=== PATIENT | female | born 1975 | race Caucasian/White ===

== ENCOUNTER 2021-12-02 17:15 | Inpatient (IN) | payer MEDICARE ==
[~2021-12-02] VITALS: Ht 175.3 cm; Wt 83.9 kg
[2021-12-02] MEDS ORDERED: ONDANSETRON HCL INJ 2MG/ML 2ML 2 MG/ML VIAL IV STA (17:34)
[2021-12-02] MEDS ORDERED: Morphine 4mg INJECTION 4 MG/ML INJ IV STA (17:34)
[2021-12-02 17:55] LABS: BASOPHILS # (AUTO) 0.1 (0.0-0.1); BASOPHILS % 0.4 % (0.0-1.0); EOSINOPHILS # (AUTO) 0.2 (0.0-0.4); EOSINOPHILS % 1.3 % (0.0-6.0); HEMATOCRIT 37.6 % (34.2-44.1); LYMPHOCYTES % 12.6 % (18.0-39.1); MEAN CORPUSCULAR HEMOGLOBIN 31.4 pg (28-32); MEAN CORPUSCULAR HGB CONC 34.6 g/dL (31-35); MEAN CORPUSCULAR VOLUME 90.8 fL (81-99); MONOCYTES # (AUTO) 0.6 (0.2-0.8); MONOCYTES % 3.9 % (4.4-11.3); NEUTROPHILS # (AUTO) 12.8 (2.1-6.9); NEUTROPHILS % 80.9 % (38.7-80.0); PLATELET COUNT 300 x10e3/uL (140-360); RED BLOOD COUNT 4.14 x10e6/uL (3.6-5.1); RED CELL DISTRIBUTION WIDTH 13.3 % (11.7-14.4)
[2021-12-02 18:15] LABS: ALANINE AMINOTRANSFERASE 59 IU/L (0-55); ALBUMIN 4.3 g/dL (3.5-5.0); ALKALINE PHOSPHATASE 94 IU/L (40-150); ANION GAP 18.5 mmol/L (8-16); BLOOD UREA NITROGEN 12 mg/dL (7-26); BUN/CREATININE RATIO 17 (6-25); CALCIUM 9.5 mg/dL (8.4-10.2); CARBON DIOXIDE 22 mmol/L (22-29); CHLORIDE 99 mmol/L (98-107); CREATINE KINASE 47 IU/L (29-168); GLUCOSE 98 mg/dL (74-118); POTASSIUM 3.5 mmol/L (3.5-5.1); SODIUM 136 mmol/L (136-145)
[2021-12-02 19:20] LABS: AMPHETAMINES SCREEN,URINE NEGATIVE (NEGATIVE); BENZODIAZEPINES SCREEN,URINE NEGATIVE (NEGATIVE); PHENCYCLIDINE SCREEN,URINE NEGATIVE (NEGATIVE)
[2021-12-02] MEDS: Morphine 4mg INJECTION 4 MG/ML INJ IV PRN (22:06)
[2021-12-02] MEDS: ONDANSETRON HCL INJ 2MG/ML 2ML 2 MG/ML VIAL IV PRN (22:06)
[2021-12-02] MEDS ORDERED: DOCUSATE SODIUM 100 MG CAP PO PRN (22:30)
[2021-12-02] MEDS ORDERED: HYDROCODON-ACE1 EA12 PO (23:55)
[2021-12-02] MEDS ORDERED: QUETIAPINE FUM400 M1 PO (23:55)
[2021-12-02] MEDS ORDERED: BUSPIRONE HCL15 MG PO (23:55)
[2021-12-02] MEDS ORDERED: BACLOFEN20 MG PO (23:55)
[2021-12-02] MEDS ORDERED: PROMETHAZINE HC25 M1 PO (23:55)
[2021-12-02] MEDS ORDERED: PREGABALIN200 MG PO (23:55)
[2021-12-02] MEDS ORDERED: AMITRIPTYLINE H25 MG PO (23:55)
[2021-12-02] MEDS ORDERED: VENLAFAXINE HCL75 M1 PO (23:55)
[2021-12-03] VITALS (10 sets, daily range): BP systolic 106–145; BP diastolic 56–90
[2021-12-03 00:06] LABS: CHOL/HDL RATIO 5.6 (3.0-3.6)
[2021-12-03] MEDS: ENOXAPARIN INJ 80 MG/0.8 ML SYR SC SCH ×3 (01:18→20:45)
[2021-12-03 01:59] LABS: CREATINE KINASE 42 IU/L (29-168)
[2021-12-03] MEDS: Morphine 4mg INJECTION 4 MG/ML INJ IV PRN ×7 (02:09→23:20)
[2021-12-03] MEDS: AMITRIPTYLINE HCL 25 MG TAB PO SCH ×2 (04:48→20:45)
[2021-12-03] MEDS: BUSPIRONE HCL 5 MG TAB PO SCH ×4 (04:49→20:45)
[2021-12-03] MEDS: PREGABALIN 50 MG CAP PO SCH ×4 (04:49→20:45)
[2021-12-03] MEDS: BACLOFEN 10 MG TAB PO SCH ×3 (04:49→17:08)
[2021-12-03 06:08] LABS: BASOPHILS % 0.5 % (0.0-1.0); EOSINOPHILS # (AUTO) 0.2 (0.0-0.4); HEMATOCRIT 37.1 % (34.2-44.1); LYMPHOCYTES # (AUTO) 1.7 (1.0-3.2); LYMPHOCYTES % 26.7 % (18.0-39.1); MEAN CORPUSCULAR HEMOGLOBIN 30.9 pg (28-32); MEAN CORPUSCULAR HGB CONC 32.3 g/dL (31-35); MEAN CORPUSCULAR VOLUME 95.6 fL (81-99); MONOCYTES # (AUTO) 0.3 (0.2-0.8); NEUTROPHILS # (AUTO) 4.1 (2.1-6.9); NEUTROPHILS % 64.2 % (38.7-80.0); PLATELET COUNT 280 x10e3/uL (140-360); RED BLOOD COUNT 3.88 x10e6/uL (3.6-5.1); RED CELL DISTRIBUTION WIDTH 13.2 % (11.7-14.4)
[2021-12-03] MEDS: ONDANSETRON HCL INJ 2MG/ML 2ML 2 MG/ML VIAL IV PRN (06:08)
[2021-12-03 06:35] LABS: ALBUMIN 3.6 g/dL (3.5-5.0); ALBUMIN/GLOBULIN RATIO 1.2 (0.8-2.0); ANION GAP 18.6 mmol/L (8-16); CALCIUM 8.7 mg/dL (8.4-10.2); CREATININE, SERUM 0.63 mg/dL (0.57-1.11); POTASSIUM 3.6 mmol/L (3.5-5.1)
[2021-12-03 08:14] LABS: CREATINE KINASE 42 IU/L (29-168)
[2021-12-03] MEDS: FAMOTIDINE 20 MG TAB PO SCH ×2 (09:21→17:08)
[2021-12-03] MEDS: ASPIRIN 325 MG TAB EC PO SCH (09:22)
[2021-12-03 16:24] LABS: CREATINE KINASE 42 IU/L (29-168)
[2021-12-03] MEDS ORDERED: ENOXAPARIN SOD INJ 40 MG/0.4 ML SYR SC SCH ×2 (17:00)
[2021-12-04] VITALS: BP 125/87
[2021-12-04 04:00] VITALS: BP 121/68
[2021-12-04] MEDS: Morphine 4mg INJECTION 4 MG/ML INJ IV PRN ×3 (05:26→14:47)
[2021-12-04] MEDS: ONDANSETRON HCL INJ 2MG/ML 2ML 2 MG/ML VIAL IV PRN ×3 (05:26→14:47)
[2021-12-04 08:14] VITALS: BP 116/56
[2021-12-04] MEDS: FAMOTIDINE 20 MG TAB PO SCH ×2 (08:34→16:34)
[2021-12-04] MEDS: PREGABALIN 50 MG CAP PO SCH ×2 (08:50→14:43)
[2021-12-04] MEDS: BUSPIRONE HCL 5 MG TAB PO SCH ×2 (08:50→14:42)
[2021-12-04] MEDS: ASPIRIN 325 MG TAB EC PO SCH (08:50)
[2021-12-04] MEDS: BACLOFEN 10 MG TAB PO SCH ×2 (08:51→16:34)
[2021-12-04] MEDS: ENOXAPARIN INJ 80 MG/0.8 ML SYR SC SCH (08:51)
[2021-12-04 09:55] VITALS: BP 116/56
[2021-12-04 11:32] VITALS: BP 103/71
[2021-12-04 15:46] VITALS: BP 107/62
[2021-12-04] MEDS ORDERED: ATORVASTATIN CA20 MG PO (18:45)
[2021-12-04] MEDS ORDERED: ASPIRIN EC81 MG PO (18:45)
== END 2021-12-04 19:45 | disposition home or self-care (01) | DRG 313 ==
LOC: ER 17:17 → ERHOLD 18:51 → MED/SURG3 23:35 → OBSVTOIN 12-03 13:28
PROVIDERS: ADMIT Internal Medicine; ATTEND Internal Medicine
DX: R07.89 Other chest pain (principal); R74.01 Elevation of levels of liver transaminase levels; I10 Essential (primary) hypertension; Z90.49 Acquired absence of other specified parts of digestive tract; Z90.710 Acquired absence of both cervix and uterus; Z88.8 Allergy status to other drugs, medicaments and biological substances; Z20.822 Contact with and (suspected) exposure to COVID-19
CPT/HCPCS: 36415; 71045; 80053; 80061; 80307; 81025; 82550; 82553; 83690; 83880; 84484; 85025; 85379; 93005; 93306; 94799; 99284; G0378; J1650; J2270; J2405

== ENCOUNTER 2022-06-29 18:54 | Emergency (ER) | payer MEDICARE ==
[~2022-06-29] VITALS: Ht 175.3 cm; Wt 83.9 kg
[~2022-06-29 18:54] MED LIST: AMITRIPTYLINE H25 MG PO; ASPIRIN EC81 MG PO; ATORVASTATIN CA20 MG PO; BACLOFEN20 MG PO; BUSPIRONE HCL15 MG PO; HYDROCODON-ACE1 EA12 PO; MEDROL4 M2 PO; PREGABALIN200 MG PO; PROMETHAZINE HC25 M1 PO; QUETIAPINE FUM400 M1 PO; VENLAFAXINE HCL75 M1 PO
[2022-06-29 19:37] LABS: BASOPHILS % 0.7 % (0.0-1.0); EOSINOPHILS # (AUTO) 0.3 (0.0-0.4); EOSINOPHILS % 4.4 % (0.0-6.0); HEMATOCRIT 37.2 % (34.2-44.1); HEMOGLOBIN 12.8 g/dL (12.0-16.0); LYMPHOCYTES # (AUTO) 1.9 (1.0-3.2); LYMPHOCYTES % 30.9 % (18.0-39.1); MEAN CORPUSCULAR HGB CONC 34.4 g/dL (31-35); MEAN CORPUSCULAR VOLUME 90.1 fL (81-99); MONOCYTES # (AUTO) 0.3 (0.2-0.8); MONOCYTES % 5.6 % (4.4-11.3); NEUTROPHILS # (AUTO) 3.5 (2.1-6.9); NEUTROPHILS % 57.4 % (38.7-80.0); PLATELET COUNT 295 x10e3/uL (140-360); RED BLOOD COUNT 4.13 x10e6/uL (3.6-5.1); RED CELL DISTRIBUTION WIDTH 13.2 % (11.7-14.4)
[2022-06-29 19:56] LABS: ALANINE AMINOTRANSFERASE 88 IU/L (0-55); ALBUMIN/GLOBULIN RATIO 0.9 (0.8-2.0); ALKALINE PHOSPHATASE 94 IU/L (40-150); ANION GAP 18.6 mmol/L (8-16); BLOOD UREA NITROGEN 15 mg/dL (7-26); BUN/CREATININE RATIO 21 (6-25); CALCIUM 9.2 mg/dL (8.4-10.2); CARBON DIOXIDE 21 mmol/L (22-29); CHLORIDE 103 mmol/L (98-107); CREATINE KINASE 39 IU/L (29-168); CREATININE, SERUM 0.73 mg/dL (0.57-1.11); GLUCOSE 145 mg/dL (74-118); POTASSIUM 3.6 mmol/L (3.5-5.1); SODIUM 139 mmol/L (136-145)
[2022-06-29] MEDS ORDERED: ONDANSETRON HCL INJ 2MG/ML 2ML 2 MG/ML VIAL IV STA (19:58)
[2022-06-29] MEDS ORDERED: Morphine 2mg Syringe 2 MG/ML SYR IV ONE (20:00)
[2022-06-29] MEDS ORDERED: IOPAMIDOL 370 MG/ML 100 ML INFUS..BTL INJ ONE (20:01)
[2022-06-29 22:28] LABS: CREATINE KINASE 39 IU/L (29-168)
== END 2022-06-29 23:26 | disposition home or self-care (01) ==
LOC: ER 19:00
DX: R07.9 Chest pain, unspecified (principal); M54.9 Dorsalgia, unspecified; G89.29 Other chronic pain; M79.7 Fibromyalgia; Z86.718 Personal history of other venous thrombosis and embolism
CPT/HCPCS: 36415; 71045; 71260; 80053; 82550; 82553; 84484; 85025; 85379; 93005; 99284; J2270; J2405; Q9967

== ENCOUNTER 2022-08-02 09:03 | Emergency (ER) | payer MEDICARE ==
[~2022-08-02] VITALS: Ht 175.3 cm; Wt 83.9 kg
[2022-08-02] MEDS ORDERED: SODIUM CHLORIDE 0.9% 1000ML 1,000 ML IV STA (10:00)
[2022-08-02] MEDS ORDERED: ONDANSETRON HCL INJ 2MG/ML 2ML 2 MG/ML VIAL IV STA ×2 (10:00→13:28)
[2022-08-02] MEDS ORDERED: Morphine 4mg INJECTION 4 MG/ML INJ IV STA ×2 (10:00→13:28)
[2022-08-02 10:17] LABS: BASOPHILS % 0.8 % (0.0-1.0); EOSINOPHILS # (AUTO) 0.2 (0.0-0.4); EOSINOPHILS % 3.4 % (0.0-6.0); HEMATOCRIT 34.8 % (34.2-44.1); HEMOGLOBIN 11.8 g/dL (12.0-16.0); LYMPHOCYTES # (AUTO) 1.3 (1.0-3.2); LYMPHOCYTES % 24.6 % (18.0-39.1); MEAN CORPUSCULAR HEMOGLOBIN 31.2 pg (28-32); MEAN CORPUSCULAR HGB CONC 33.9 g/dL (31-35); MEAN CORPUSCULAR VOLUME 92.1 fL (81-99); MONOCYTES # (AUTO) 0.5 (0.2-0.8); MONOCYTES % 8.6 % (4.4-11.3); NEUTROPHILS # (AUTO) 3.2 (2.1-6.9); NEUTROPHILS % 61.6 % (38.7-80.0); PLATELET COUNT 261 x10e3/uL (140-360); RED BLOOD COUNT 3.78 x10e6/uL (3.6-5.1); RED CELL DISTRIBUTION WIDTH 13.6 % (11.7-14.4)
[2022-08-02 10:27] LABS: INR 1.05; PROTHROMBIN TIME 14.2 seconds (11.9-14.5)
[2022-08-02 10:28] LABS: PARTIAL THROMBOPLASTIN TIME 31.6 seconds (23.8-35.5)
[2022-08-02 10:36] LABS: ALANINE AMINOTRANSFERASE 111 IU/L (0-55); ALBUMIN 3.7 g/dL (3.5-5.0); ALBUMIN/GLOBULIN RATIO 0.9 (0.8-2.0); ALKALINE PHOSPHATASE 107 IU/L (40-150); BLOOD UREA NITROGEN 9 mg/dL (7-26); BUN/CREATININE RATIO 11 (6-25); CALCIUM 8.7 mg/dL (8.4-10.2); CARBON DIOXIDE 22 mmol/L (22-29); CHLORIDE 104 mmol/L (98-107); CREATINE KINASE 47 IU/L (29-168); CREATININE, SERUM 0.79 mg/dL (0.57-1.11); GLUCOSE 181 mg/dL (74-118); LIPASE 37 U/L (8-78); MAGNESIUM 1.9 MG/DL (1.3-2.1); SODIUM 138 mmol/L (136-145)
[2022-08-02 10:48] LABS: CLARITY,URINE CLOUDY (CLEAR); COLOR,URINE YELLOW (YELLOW); LEUKOCYTE ESTERASE ,URINE NEGATIVE (NEGATIVE); NITRITE,URINE NEGATIVE (NEGATIVE); PROTEIN,URINE DIPSTICK 1+ (NEGATIVE)
[2022-08-02 10:49] LABS: KETONES,URINE TRACE (NEGATIVE); URINE UROBILINOGEN 0.2 mg/dL (0.2 - 1)
[2022-08-02 11:06] LABS: BACTERIA,URINE MANY /HPF; EPITHELIAL CELLS,URINE MANY /LPF; RBC,URINE 0-5 /HPF (0-5)
[2022-08-02] MEDS ORDERED: IOPAMIDOL 370 MG/ML 100 ML INFUS..BTL INJ ONE (11:10)
[2022-08-02] MEDS ORDERED: POTASSIUM CHLORIDE 20 MEQ TAB CR PO STA (11:22)
[2022-08-02 16:00] VITALS: BP 137/81; PULSE 77; RESP 17; TEMP 98.4; O2SAT 99
== END 2022-08-02 16:01 | disposition home or self-care (01) ==
LOC: ER 09:05
DX: R10.31 Right lower quadrant pain (principal); R19.03 Right lower quadrant abdominal swelling, mass and lump; M79.7 Fibromyalgia; M54.9 Dorsalgia, unspecified; G89.29 Other chronic pain; R94.31 Abnormal electrocardiogram [ECG] [EKG]; Z20.822 Contact with and (suspected) exposure to COVID-19; Z86.718 Personal history of other venous thrombosis and embolism
CPT/HCPCS: 0223U; 36415; 71045; 74177; 76830; 76856; 80053; 81001; 82550; 82553; 83690; 83735; 84484; 85025; 85610; 85730; 87086; 93005; 99284; C9113; J2270; J2405; J7030; Q9967

== ENCOUNTER 2022-09-05 18:31 | Emergency (ER) | payer MEDICARE ==
[~2022-09-05] VITALS: Ht 175.3 cm; Wt 83.9 kg
[2022-09-05] MEDS ORDERED: ONDANSETRON HCL INJ 2MG/ML 2ML 2 MG/ML VIAL IV STA (18:57)
[2022-09-05] MEDS ORDERED: KETOROLAC TROMETHAMINE 30 MG/ML VIAL IV STA (18:57)
[2022-09-05] MEDS ORDERED: Morphine 4mg INJECTION 4 MG/ML INJ IV ONE (19:00)
[2022-09-05 19:19] LABS: BASOPHILS # (AUTO) 0.1 (0.0-0.1); BASOPHILS % 0.8 % (0.0-1.0); EOSINOPHILS # (AUTO) 0.3 (0.0-0.4); EOSINOPHILS % 4.9 % (0.0-6.0); HEMATOCRIT 38.5 % (34.2-44.1); HEMOGLOBIN 13.4 g/dL (12.0-16.0); LYMPHOCYTES # (AUTO) 1.9 (1.0-3.2); LYMPHOCYTES % 32.1 % (18.0-39.1); MEAN CORPUSCULAR HGB CONC 34.8 g/dL (31-35); MEAN CORPUSCULAR VOLUME 89.1 fL (81-99); MONOCYTES # (AUTO) 0.3 (0.2-0.8); MONOCYTES % 5.4 % (4.4-11.3); NEUTROPHILS # (AUTO) 3.3 (2.1-6.9); NEUTROPHILS % 55.8 % (38.7-80.0); PLATELET COUNT 343 x10e3/uL (140-360); RED BLOOD COUNT 4.32 x10e6/uL (3.6-5.1); RED CELL DISTRIBUTION WIDTH 13.2 % (11.7-14.4)
[2022-09-05 19:23] LABS: INR 0.88; PROTHROMBIN TIME 12.4 seconds (11.9-14.5)
[2022-09-05 19:24] LABS: PARTIAL THROMBOPLASTIN TIME 24.6 seconds (23.8-35.5)
[2022-09-05 19:33] LABS: ALBUMIN 4.4 g/dL (3.5-5.0); ANION GAP 19.8 mmol/L (8-16); CALCIUM 9.2 mg/dL (8.4-10.2); CREATININE, SERUM 0.71 mg/dL (0.57-1.11); POTASSIUM 3.8 mmol/L (3.5-5.1)
[2022-09-05] MEDS ORDERED: HYDROCODONE/APAP 5MG-325MG TAB PO ONE (21:00)
[2022-09-06 00:10] VITALS: BP 140/88; PULSE 72; RESP 17; TEMP 98.6; O2SAT 98
== END 2022-09-06 00:12 | disposition home or self-care (01) ==
LOC: ER 18:33
DX: R10.31 Right lower quadrant pain (principal); R19.09 Other intra-abdominal and pelvic swelling, mass and lump; M54.9 Dorsalgia, unspecified; G89.29 Other chronic pain; M79.7 Fibromyalgia; Z86.718 Personal history of other venous thrombosis and embolism
CPT/HCPCS: 36415; 76856; 80053; 85025; 85610; 85730; 99283; J1885; J2270; J2405